=== PATIENT | female | born 1945 | race Caucasian/White ===

== ENCOUNTER 2017-07-04 07:57 | Day surgery (SDC) | payer OTHER ==
[~2017-07-04] VITALS: Ht 154.9 cm; Wt 85.5 kg
[2017-07-04] VITALS (8 sets, daily range): BP systolic 114–149; BP diastolic 69–99; PULSE 18–76; RESP 18–20; TEMP 97.8–97.9; O2SAT 92–98
[~2017-07-04 07:57] MED LIST: ARIP1TAB11 PO; ASPI1TAB57 PO; BUSP15TA PO; FLUT50SP EACH NARE; LEVO-168 PO; LEXA20TA PO; LOSA50TA2 PO; OMEP40CA2 PO; ONCETAB7 PO; POTA1CAP PO; PRAM1TAB PO; RANI150C PO; SUMA20SP NASAL; TOPI25 PO; VENTAER INH
[2017-07-04] MEDS ORDERED: LEVO112T2 PO (08:23)
[2017-07-04] MEDS ORDERED: LEVO125T4 PO (08:23)
[2017-07-04] MEDS ORDERED: SODIUM CHLOR 0.9% 1000 ML IV SCH (09:00)
[2017-07-04] MEDS ORDERED: LIDOCAINE HCL 1% 20 ML VIAL ONE (09:24)
[2017-07-04] MEDS ORDERED: MIDAZOLAM HCL 2 MG/2 ML VIAL ONE (09:35)
--- NOTE | 2017-07-04 10:08 | PD.RAD ---
Post CT Procedure Prog Note Pre Procedure Diagnosis: (1) LFTs abnormal Post Procedure Diagnosis: (1) LFTs abnormal Procedure Date: Jul 04, 2017 Supervising Radiologist: Fermín Munoz Anesthesia: Conscious Sedation Plan of Activity Patient to Unit: ROPU Patient Condition: Good See PACS Report for procedural detail/treatment Biopsy Imaging Guidance: CT Side: Right Biopsy Procedure: Liver Specimen: Core Biopsy Additional Detail: 2 18G cores taken Plan to ROPU then discharge in 4 hours. Fermín Munoz MD Jul 04, 2017 10:08
[2017-07-04] MEDS ORDERED: HYDROmorphone HCL 2 MG TAB PO PRN (10:15)
[2017-07-04] MEDS ORDERED: FAMOTIDINE 20 MG TAB PO ONE (11:00)
--- NOTE | 2017-07-04 12:15 | RADRPT ---
EXAM DATE/TIME: 07/04/2017 09:48 [place] COMPARISON: No previous studies available for comparison. INDICATIONS : Abnormal liver functions SEDATION TIME: 15 minutes BIOPSY SITE: liver MEDICATION(S): 1.) 3 mg midazolam (Versed) IV 2.) 150 mcg fentanyl (Sublimaze) IV DEVICE(S): 1.) 18 gauge [place] core biopsy needle MEDICAL HISTORY : Hypertension. Gastroesophageal reflux disease. SURGICAL HISTORY : Cholecystectomy ENCOUNTER: Initial ACUITY: 1 day PAIN SCORE: 0/10 LOCATION: upper quadrant A total of two core specimen(s) were obtained and sent to the laboratory for pathologic evaluation. PROCEDURE: 1. CT guided liver biopsy. 2. Conscious sedation with continuous EKG and oximetry monitoring. 3. EKG and oximetry remained stable throughout the procedure. Prior to the procedure informed consent was obtained. Using automated exposure control and adjustment of the mA and/or kV according to patient size, radiat ion dose was kept as low as reasonably achievable to obtain optimal diagnostic quality images. DICOM format image data is available electronically for review and comparison. The site was prepped in a sterile fashion. Full sterile technique was used, including cap, mask, katelyn rile gloves and gown and a large sterile sheet. Hand hygiene and 2% chlorhexidine and/or betadine/al cohol prep was utilized per protocol for cutaneous antisepsis. The skin and subcutaneous tissues wer e infiltrated with local anesthetic solution. With CT guidance the previously identified target was localized. Biopsy was performed using the presc ribed needle as above. Adequate hemostasis was obtained with compression at the puncture site. Follow-up CT scan reveals no hemorrhage or acute abnormality. The patient tolerated the procedure well and there were no complications. The patient was returned to the Radiology Outpatient Unit in stable condition. CONCLUSION: Uncomplicated CT guided biopsy of the right lobe of the liver. Fermín Munoz MD on July 04, 2017 at 10:44 Board Certified Radiologist. This report was verified electronically.
== END 2017-07-04 14:30 | disposition home or self-care (01) ==
LOC: HRAD 07:57 → HRIP 07:58 → HRAD 14:30
PROVIDERS: ATTEND Internal Medicine Gastroenterology
DX: K76.0 Fatty (change of) liver, not elsewhere classified (principal); R94.5 Abnormal results of liver function studies; K21.9 Gastro-esophageal reflux disease without esophagitis; I10 Essential (primary) hypertension
CPT/HCPCS: 47000; 77012; 88307; 88313; J2250; J3010; J7030